=== PATIENT | female | born 1985 | race Caucasian/White ===

== ENCOUNTER 2016-12-15 15:44 | Emergency (ER) | payer OTHER ==
[~2016-12-15] VITALS: Wt 90.7 kg
[~2016-12-15 15:44] MED LIST: ALBUTEROL0.09 MG/A2 IH; AMBIEN10 MG PO; AMOXICILLIN500 MG PO; ANAFRANIL50 MG PO; ANUSOL-HC2.5% RC; BENADRYL50 MG PO; CHROMAGEN FORTE1 TAB PO; CIPRO XR500 MG PO; FLEXERIL10 MG PO; LO LOESTRIN FE1 TAB PO; LUVOX50 MG PO; MELATONIN10 M4 PO; MOTRIN800 MG PO; OMEPRAZOLE D/R20 MG PO; PEN-VEE K500 MG PO; PERCOCET 325 MG1 TA6 PO; REMERON30 MG PO; SUBOXONE; SUBOXONE 8 MG-1 EACH PO; TRAMADOL HCL50 MG PO; TRIMOX500 MG PO; ULTRAM50 MG PO; VICODIN 5/500 505 MG PO; XANAX0.5 MG PO; XANAX1 MG PO; ZITHROMAX Z PA250 MG PO; ZOFRAN ODT4 MG PO
[2016-12-15] MEDS ORDERED: ANAPROX DS550 MG PO (16:52)
== END 2016-12-15 17:19 | disposition home or self-care (01) ==
LOC: ED 15:44
DX: M25.562 Pain in left knee (principal); Z90.49 Acquired absence of other specified parts of digestive tract

== ENCOUNTER → 2017-10-16 | Outpatient (CLI) | payer OTHER ==
[~2017-10-16] MED LIST changes: +ANAPROX DS550 MG PO; +DOXEPIN HCL25 MG PO; +HYDROXYZINE PAM50 MG PO; +MIRTAZAPINE45 MG PO; +OMEPRAZOLE40 MG PO; +PAROXETINE HCL20 MG PO
[2017-10-16 13:21] LABS: BASO # 0.1 10*3/uL (0.0-0.1); BASO % 1.1 % (0.0-1.0); EOS # 0.1 10*3/uL (0.0-0.4); EOS % 1.3 % (1.0-4.0); HEMATOCRIT 28.2 % (37.0-47.0); HEMOGLOBIN 7.6 g/dl (12.0-16.0); LYMPH # 1.8 10*3/uL (1.3-4.4); LYMPH % 28.5 % (27.0-41.0); MEAN CELL VOLUME 66.5 fl (81.0-99.0); MEAN CORPUSCULAR HGB 17.9 pg (27.0-31.0); MEAN PLATELET VOLUME 11.4 fl (9.6-12.3); MONO # 0.6 10*3/uL (0.1-1.0); MONO % 10.2 % (3.0-9.0); NEUT # 3.6 10*3/uL (2.3-7.9); NEUT % 58.6 % (47.0-73.0); PLATELET COUNT AUTOMATED 262 10*3/uL (130-400); RED BLOOD COUNT 4.24 10*6/uL (4.10-5.10); RED CELL DISTRI WIDTH 17.5 % (0-14.5); WHITE BLOOD COUNT 6.2 10*3/uL (4.8-10.8)
[2017-10-16 13:59] LABS: ALBUMIN 3.7 gm/dl (3.1-4.5); ALKALINE PHOSPHATASE 133 U/L (45-117); BUN 15 mg/dl (7-24); CHLORIDE 107 mmol/L (98-107); POTASSIUM 4.2 mmol/L (3.5-5.1); SGOT/AST 26 IU/L (3-35); SGPT/ALT 19 U/L (12-78); SODIUM 140 mmol/L (136-145)
== END | disposition home or self-care (01) ==
LOC: LAB 12:25
DX: Z51.81 Encounter for therapeutic drug level monitoring (principal); Z79.899 Other long term (current) drug therapy

== ENCOUNTER 2017-10-18 17:23 | Emergency (ER) | payer OTHER ==
[~2017-10-18] VITALS: Ht 160 cm; Wt 77.1 kg
[~2017-10-18 17:23] MED LIST changes: -DOXEPIN HCL25 MG PO; -HYDROXYZINE PAM50 MG PO; -MIRTAZAPINE45 MG PO; -OMEPRAZOLE40 MG PO; -PAROXETINE HCL20 MG PO
[2017-10-18] MEDS ORDERED: OMEPRAZOLE40 MG PO (17:36)
[2017-10-18] MEDS ORDERED: PAROXETINE HCL20 MG PO (17:36)
[2017-10-18] MEDS ORDERED: DOXEPIN HCL25 MG PO (17:36)
[2017-10-18] MEDS ORDERED: HYDROXYZINE PAM50 MG PO (17:36)
[2017-10-18] MEDS ORDERED: MIRTAZAPINE45 MG PO (17:37)
[2017-10-18 18:05] LABS: BASO # 0.1 10*3/uL (0.0-0.1); BASO % 0.9 % (0.0-1.0); EOS # 0.1 10*3/uL (0.0-0.4); EOS % 0.9 % (1.0-4.0); HEMOGLOBIN 7.9 g/dl (12.0-16.0); LYMPH # 1.8 10*3/uL (1.3-4.4); LYMPH % 22.6 % (27.0-41.0); MEAN CELL VOLUME 65.1 fl (81.0-99.0); MEAN CORPUSCULAR HGB 18.4 pg (27.0-31.0); MEAN CORPUSCULAR HGB CONC 28.2 g/dl (33.0-37.0); MEAN PLATELET VOLUME 10.6 fl (9.6-12.3); MONO # 0.6 10*3/uL (0.1-1.0); MONO % 8.3 % (3.0-9.0); NEUT # 5.2 10*3/uL (2.3-7.9); PLATELET COUNT AUTOMATED 297 10*3/uL (130-400); RED CELL DISTRI WIDTH 17.2 % (0-14.5); WHITE BLOOD COUNT 7.7 10*3/uL (4.8-10.8)
[2017-10-18 18:15] LABS: ACT PARTIAL THROMBO TIME 23.5 SECONDS (20.8-31.5)
[2017-10-18 18:22] LABS: ALBUMIN 3.8 gm/dl (3.1-4.5); ALKALINE PHOSPHATASE 134 U/L (45-117); BUN 19 mg/dl (7-24); CHLORIDE 103 mmol/L (98-107); CREATININE 0.83 mg/dL (0.55-1.02); LIPASE 169 U/L (73-393); POTASSIUM 3.7 mmol/L (3.5-5.1); SGOT/AST 20 IU/L (3-35); SGPT/ALT 19 U/L (12-78); SODIUM 138 mmol/L (136-145); TOTAL PROTEIN 8.3 gm/dL (6.4-8.2)
[2017-10-18 18:23] LABS: TROPONIN I < 0.015 ng/ml (<0.045)
== END 2017-10-18 19:19 | disposition home or self-care (01) ==
LOC: ED 17:23
PROVIDERS: Nurse Practitioner Family
DX: D64.9 Anemia, unspecified (principal); Z79.899 Other long term (current) drug therapy

== ENCOUNTER 2018-04-19 21:41 | Emergency (ER) | payer OTHER ==
[~2018-04-19] VITALS: Wt 77.1 kg
== END 2018-04-19 22:25 ==
LOC: ED 21:41
DX: L23.9 Allergic contact dermatitis, unspecified cause (principal); Z90.49 Acquired absence of other specified parts of digestive tract; Z90.710 Acquired absence of both cervix and uterus; Z79.899 Other long term (current) drug therapy

== ENCOUNTER 2020-02-09 15:26 | Emergency (ER) | payer OTHER ==
[~2020-02-09] VITALS: Ht 162.5 cm; Wt 77.1 kg
[~2020-02-09 15:26] MED LIST changes: +DOXEPIN HCL25 MG PO; +HYDROXYZINE PAM50 MG PO; +MIRTAZAPINE45 MG PO; +OMEPRAZOLE40 MG PO; +PAROXETINE HCL20 MG PO; +PREDNISONE10 MG PO
[2020-02-09 16:12] LABS: HEMATOCRIT 21.4 % (37.0-47.0); MEAN CELL VOLUME 88.4 fl (81.0-99.0); MEAN CORPUSCULAR HGB 28.5 pg (27.0-31.0); MEAN CORPUSCULAR HGB CONC 32.2 g/dl (33.0-37.0); MEAN PLATELET VOLUME 10.3 fl (9.6-12.3); PLATELET COUNT AUTOMATED 284 10*3/uL (130-400); RED BLOOD COUNT 2.42 10*6/uL (4.10-5.10); RED CELL DISTRI WIDTH 15.1 % (0-14.5); WHITE BLOOD COUNT 10.4 10*3/uL (4.8-10.8)
[2020-02-09 16:24] LABS: ALBUMIN 3.2 gm/dl (3.1-4.5); ALKALINE PHOSPHATASE 93 U/L (45-117); BUN 14 mg/dl (7-24); CHLORIDE 107 mmol/L (98-107); CREATININE 0.86 mg/dL (0.55-1.02); POTASSIUM 3.3 mmol/L (3.5-5.1); SGOT/AST 21 IU/L (3-35); SGPT/ALT 42 U/L (12-78); SODIUM 138 mmol/L (136-145); TOTAL PROTEIN 6.5 gm/dL (6.4-8.2)
[2020-02-09 16:31] LABS: RETICULOCYTE % 4.28 % (0.50-2.50)
[2020-02-09 16:36] LABS: BASOPHILS 1 % (0-1); PLATELET SUFFICIENCY NORMAL (NORMAL); TOTAL CELLS COUNTED 100 #CELLS
[2020-02-09 16:37] LABS: POLYCHROMASIA SLIGHT
[2020-02-09 16:38] LABS: IRON 11 ug/dL (50-170); TOTAL IRON BINDING CAPACITY 302 ug/dl (250-450)
[2020-02-09 16:43] LABS: ACT PARTIAL THROMBO TIME 21.4 SECONDS (20.0-32.1); INTERNATIONAL NORM RATIO 0.9 (2.0-3.5)
[2020-02-09] MEDS ORDERED: IRON325 M3 PO (18:00)
[2020-02-09] MEDS ORDERED: MIRALAX POWDER17 G1 PO (18:00)
[2020-02-09] MEDS ORDERED: PROVERA10 MG PO (18:47)
[2020-02-09 19:43] VITALS: BP 109/62
[2020-02-09 19:46] LABS: BILIRUBIN NEGATIVE (NEGATIVE); BLOOD 3+ (NEGATIVE); CLARITY CLOUDY (CLEAR); COLOR RED (YELLOW); GLUCOSE NEGATIVE (NEGATIVE); KETONE 3+ (NEGATIVE); LEUKO ESTERASE NEGATIVE (NEGATIVE); NITRITE POSITIVE (NEGATIVE); SPECIFIC GRAVITY 1.005 (1.005-1.030); UROBILINOGEN 0.2 E.U./dl (0.2-1.0)
[2020-02-09 19:51] LABS: BACTERIA 2+; RBC TNTC rbc/hpf (0-2)
[2020-02-09 20:02] VITALS: BP 129/48
[2020-02-09 21:02] VITALS: BP 109/43
== END 2020-02-09 22:00 | disposition home or self-care (01) ==
LOC: ED 15:26
PROVIDERS: Emergency Medicine
DX: D50.0 Iron deficiency anemia secondary to blood loss (chronic) (principal); D25.9 Leiomyoma of uterus, unspecified; N93.8 Other specified abnormal uterine and vaginal bleeding; R42 Dizziness and giddiness; K21.9 Gastro-esophageal reflux disease without esophagitis; Z79.899 Other long term (current) drug therapy

== ENCOUNTER 2021-05-23 19:28 | Emergency (ER) | payer OTHER ==
[~2021-05-23] VITALS: Ht 162.5 cm; Wt 80.4 kg
[~2021-05-23 19:28] MED LIST changes: +IRON325 M3 PO; +MIRALAX POWDER17 G1 PO; +PROVERA10 MG PO
[2021-05-23] MEDS ORDERED: NEURONTIN300 MG PO (19:47)
[2021-05-23] MEDS ORDERED: CLARITIN10 MG PO (19:48)
[2021-05-23] MEDS ORDERED: AMITRIPTYLINE100 M1 PO (19:50)
[2021-05-23 20:02] LABS: BASO # 0.1 10*3/uL (0.0-0.1); BASO % 0.9 % (0.0-1.0); EOS # 0.1 10*3/uL (0.0-0.4); EOS % 1.4 % (1.0-4.0); HEMATOCRIT 36.5 % (37.0-47.0); LYMPH # 1.5 10*3/uL (1.3-4.4); LYMPH % 25.3 % (27.0-41.0); MEAN CELL VOLUME 83.5 fl (81.0-99.0); MEAN CORPUSCULAR HGB 29.1 pg (27.0-31.0); MEAN CORPUSCULAR HGB CONC 34.8 g/dl (33.0-37.0); MEAN PLATELET VOLUME 10.5 fl (9.6-12.3); MONO # 0.6 10*3/uL (0.1-1.0); MONO % 10.7 % (3.0-9.0); NEUT # 3.6 10*3/uL (2.3-7.9); NEUT % 61.4 % (47.0-73.0); PLATELET COUNT AUTOMATED 262 10*3/uL (130-400); RED BLOOD COUNT 4.37 10*6/uL (4.10-5.10); RED CELL DISTRI WIDTH 12.5 % (0-14.5); WHITE BLOOD COUNT 5.8 10*3/uL (4.8-10.8)
[2021-05-23 20:19] LABS: ALBUMIN 3.6 gm/dl (3.1-4.5); ALKALINE PHOSPHATASE 86 U/L (45-117); BUN 20 mg/dl (7-24); CHLORIDE 108 mmol/L (98-107); CREATININE 0.75 mg/dL (0.55-1.02); POTASSIUM 3.1 mmol/L (3.5-5.1); SGOT/AST 20 IU/L (3-35); SGPT/ALT 26 U/L (12-78); SODIUM 139 mmol/L (136-145); TOTAL PROTEIN 7.2 gm/dL (6.4-8.2)
[2021-05-23 20:22] LABS: TROPONIN I < 0.015 ng/ml (<0.045)
[2021-05-23] MEDS ORDERED: MEDI-MECLIZINE25 MG PO (22:41)
[2021-05-24] MEDS ORDERED: GOOD NEIGHBOR M25 M1 PO (10:42)
== END 2021-05-23 23:57 | disposition home or self-care (01) ==
LOC: ED 19:28
PROVIDERS: Internal Medicine
DX: H81.12 Benign paroxysmal vertigo, left ear (principal); Z79.899 Other long term (current) drug therapy

== ENCOUNTER 2021-05-24 09:20 | Emergency (ER) | payer OTHER ==
[~2021-05-24] VITALS: Ht 162.5 cm; Wt 72.6 kg
[~2021-05-24 09:20] MED LIST changes: +AMITRIPTYLINE100 M1 PO; +CLARITIN10 MG PO; +MEDI-MECLIZINE25 MG PO; +NEURONTIN300 MG PO
[2021-05-24] MEDS ORDERED: GOOD NEIGHBOR M25 M1 PO (10:42)
== END 2021-05-24 10:00 | disposition home or self-care (01) ==
LOC: ED 09:20
DX: R42 Dizziness and giddiness (principal); F12.10 Cannabis abuse, uncomplicated; Z90.49 Acquired absence of other specified parts of digestive tract; Z79.899 Other long term (current) drug therapy

== ENCOUNTER → 2021-07-13 | Outpatient (CLI) | payer OTHER ==
[~2021-07-13] MED LIST changes: +GOOD NEIGHBOR M25 M1 PO
== END | disposition home or self-care (01) ==
LOC: LAB 16:12
PROVIDERS: ATTEND Family Medicine
DX: Z79.899 Other long term (current) drug therapy (principal)

== ENCOUNTER 2022-01-04 06:05 | Emergency (ER) | payer OTHER ==
[~2022-01-04] VITALS: Ht 162.5 cm; Wt 72.6 kg
[2022-01-04 06:30] LABS: BASO % 0.3 % (0.0-1.0); HEMATOCRIT 41.1 % (37.0-47.0); LYMPH # 0.5 10*3/uL (1.3-4.4); LYMPH % 7.5 % (27.0-41.0); MEAN CELL VOLUME 82.9 fl (81.0-99.0); MEAN CORPUSCULAR HGB 28.8 pg (27.0-31.0); MEAN CORPUSCULAR HGB CONC 34.8 g/dl (33.0-37.0); MEAN PLATELET VOLUME 10.2 fl (9.6-12.3); MONO # 0.4 10*3/uL (0.1-1.0); MONO % 6.7 % (3.0-9.0); NEUT # 5.1 10*3/uL (2.3-7.9); NEUT % 85.3 % (47.0-73.0); PLATELET COUNT AUTOMATED 258 10*3/uL (130-400); RED BLOOD COUNT 4.96 10*6/uL (4.10-5.10); RED CELL DISTRI WIDTH 12.5 % (0-14.5)
[2022-01-04 06:55] LABS: ALKALINE PHOSPHATASE 80 U/L (45-117); BUN 20 mg/dl (7-24); CHLORIDE 110 mmol/L (98-107); CREATININE 0.66 mg/dL (0.55-1.02); POTASSIUM 3.4 mmol/L (3.5-5.1); SGOT/AST 22 IU/L (3-35); SGPT/ALT 21 U/L (12-78); SODIUM 139 mmol/L (136-145); TOTAL PROTEIN 7.6 gm/dL (6.4-8.2)
[2022-01-04] MEDS ORDERED: ZOFRAN4 MG PO (07:41)
== END 2022-01-04 08:00 | disposition home or self-care (01) ==
LOC: ED 06:05
PROVIDERS: Internal Medicine
DX: R11.2 Nausea with vomiting, unspecified (principal); Z79.899 Other long term (current) drug therapy; Z90.49 Acquired absence of other specified parts of digestive tract; Z98.51 Tubal ligation status

== ENCOUNTER 2022-03-14 07:58 | Emergency (ER) | payer OTHER ==
[~2022-03-14] VITALS: Ht 162.5 cm; Wt 77.1 kg
[~2022-03-14 07:58] MED LIST changes: +ZOFRAN4 MG PO
[2022-03-14 08:28] LABS: BILIRUBIN Negative (Negative); BLOOD Negative (Negative); CLARITY Clear (Clear); COLOR Yellow (Yellow); GLUCOSE Negative (Negative); KETONE Negative (Negative); LEUKO ESTERASE Negative (Negative); NITRITE Negative (Negative); PH 5.5 (4.5-8.0); SPECIFIC GRAVITY 1.025 (1.001-1.030)
[2022-03-14] MEDS ORDERED: ANTIFUNGAL113 GM T (08:28)
[2022-03-14] MEDS ORDERED: PYRIDIUM200 M1 PO (08:28)
[2022-03-14] MEDS ORDERED: SEPTDS PO (08:28)
[2022-03-14 08:46] LABS: WBC 0-2 wbc/hpf (0-5)
[2022-03-14 08:47] LABS: BACTERIA 2+
== END 2022-03-14 08:45 | disposition home or self-care (01) ==
LOC: ED 07:58
PROVIDERS: Emergency Medicine
DX: N39.0 Urinary tract infection, site not specified (principal); B35.4 Tinea corporis

== ENCOUNTER 2022-04-13 08:23 | Emergency (ER) | payer OTHER ==
[~2022-04-13] VITALS: Ht 162.5 cm; Wt 77.1 kg
[~2022-04-13 08:23] MED LIST changes: +ANTIFUNGAL113 GM T; +PYRIDIUM200 M1 PO; +SEPTDS PO
[2022-04-13 09:42] LABS: HEMATOCRIT 45.2 % (37.0-47.0); MEAN CELL VOLUME 85.9 fl (81.0-99.0); MEAN CORPUSCULAR HGB 28.7 pg (27.0-31.0); MEAN CORPUSCULAR HGB CONC 33.4 g/dl (33.0-37.0); MEAN PLATELET VOLUME 11.5 fl (9.6-12.3); PLATELET COUNT AUTOMATED 112 10*3/uL (130-400); RED BLOOD COUNT 5.26 10*6/uL (4.10-5.10); RED CELL DISTRI WIDTH 13.2 % (0-14.5)
[2022-04-13 09:44] LABS: MANUAL DIFF REFLEX YES; WHITE BLOOD COUNT 1.8 10*3/uL (4.8-10.8)
[2022-04-13 09:57] LABS: ALKALINE PHOSPHATASE 245 U/L (45-117); BUN 11 mg/dl (7-24); CHLORIDE 108 mmol/L (98-107); CREATININE 0.66 mg/dL (0.55-1.02); POTASSIUM 3.8 mmol/L (3.5-5.1); SGOT/AST 184 IU/L (3-35); SGPT/ALT 107 U/L (12-78); SODIUM 140 mmol/L (136-145); TOTAL PROTEIN 7.1 gm/dL (6.4-8.2)
[2022-04-13 10:07] LABS: ATYPICAL LYMPHS 4 % (0-0); BASOPHILS 1 % (0-1); PLATELET SUFFICIENCY LOW (NORMAL); POLYCHROMASIA SLIGHT; TOTAL CELLS COUNTED 100 #CELLS
== END 2022-04-13 12:14 | disposition home or self-care (01) ==
LOC: ED 08:23
PROVIDERS: Emergency Medicine
DX: U07.1 COVID-19 (principal); R74.01 Elevation of levels of liver transaminase levels; M79.604 Pain in right leg; M79.605 Pain in left leg; Z79.899 Other long term (current) drug therapy; Z90.49 Acquired absence of other specified parts of digestive tract; Z98.890 Other specified postprocedural states; Z90.710 Acquired absence of both cervix and uterus; Z98.51 Tubal ligation status

== ENCOUNTER 2022-04-29 04:05 | Emergency (ER) | payer OTHER ==
[~2022-04-29] VITALS: Ht 162.5 cm; Wt 77.1 kg
[2022-04-29] MEDS ORDERED: AMOX-CLAV 875-1 EACH PO (06:24)
== END 2022-04-29 06:39 | disposition home or self-care (01) ==
LOC: ED 04:05
DX: J01.90 Acute sinusitis, unspecified (principal); Z20.822 Contact with and (suspected) exposure to COVID-19; Z79.899 Other long term (current) drug therapy; Z90.49 Acquired absence of other specified parts of digestive tract; Z90.710 Acquired absence of both cervix and uterus; Z98.51 Tubal ligation status

== ENCOUNTER 2024-01-22 20:26 | Emergency (ER) | payer OTHER ==
[~2024-01-22] VITALS: Ht 162.5 cm; Wt 72.6 kg
[~2024-01-22 20:26] MED LIST changes: +AMOX-CLAV 875-1 EACH PO
[2024-01-22] MEDS ORDERED: Dexamethasone Sodium Phospha 20 MG/5 ML VIAL IV ONE (21:00)
[2024-01-22] MEDS ORDERED: SODIUM CHLORIDE 0.9% 1,000 ML IV ONE (21:00)
[2024-01-22] MEDS ORDERED: diphenhydrAMINE hydrochloride 50 MG/ML VIAL IV ONE (21:00)
[2024-01-22] MEDS ORDERED: Ketorolac Tromethamine 30 MG/ML VIAL IV ONE (21:00)
[2024-01-22] MEDS ORDERED: Ondansetron Hydrochloride 4 MG/2 ML VIAL IV ONE (21:00)
[2024-01-22 21:13] LABS: BASO % 0.3 % (0.0-1.0); EOS % 0.1 % (1.0-4.0); HEMATOCRIT 33.2 % (37.0-47.0); LYMPH # 0.7 10*3/uL (1.3-4.4); LYMPH % 7.4 % (27.0-41.0); MEAN CELL VOLUME 83.6 fl (81.0-99.0); MEAN CORPUSCULAR HGB 28.7 pg (27.0-31.0); MEAN CORPUSCULAR HGB CONC 34.3 g/dl (33.0-37.0); MEAN PLATELET VOLUME 9.5 fl (9.6-12.3); MONO # 0.4 10*3/uL (0.1-1.0); MONO % 4.3 % (3.0-9.0); NEUT # 8.6 10*3/uL (2.3-7.9); NEUT % 87.6 % (47.0-73.0); PLATELET COUNT AUTOMATED 360 10*3/uL (130-400); RED BLOOD COUNT 3.97 10*6/uL (4.10-5.10); RED CELL DISTRI WIDTH 11.7 % (0-14.5); WHITE BLOOD COUNT 9.8 10*3/uL (4.8-10.8)
[2024-01-22 21:34] LABS: BUN 10 mg/dl (9-23); CHLORIDE 101 mmol/L (98-107); POTASSIUM 2.8 mmol/L (3.4-5.1)
[2024-01-22] MEDS ORDERED: POTASSIUM CHLORIDE 20 MEQ TAB PO ONE (21:50)
[2024-01-22] MEDS ORDERED: VIBRAMYCIN100 MG PO (22:45)
[2024-01-22] MEDS ORDERED: Doxycycline Hyclate 100 MG CAP PO ONE (22:50)
== END 2024-01-22 22:57 | disposition home or self-care (01) ==
LOC: ED 20:26
PROVIDERS: Physician Assistant Medical
DX: J18.9 Pneumonia, unspecified organism (principal); K21.9 Gastro-esophageal reflux disease without esophagitis; F31.9 Bipolar disorder, unspecified; F41.9 Anxiety disorder, unspecified; D64.9 Anemia, unspecified; Z90.49 Acquired absence of other specified parts of digestive tract; Z98.51 Tubal ligation status; Z90.710 Acquired absence of both cervix and uterus; Z98.890 Other specified postprocedural states